=== PATIENT | female | born 1935 | race Caucasian/White ===

== ENCOUNTER → 2016-08-01 | Outpatient (REF) | LOC: ZLAB.WCH 09:17 | DX: Z01.89 Encounter for other specified special examinations (principal) ==

== ENCOUNTER → 2016-09-28 | Outpatient (REF) ==
[2016-09-28 19:08] LABS: THYROID STIMULATING HORMONE 2.02 uIU/mL (0.465-4.680)
== END ==
LOC: ZLAB.WCH 18:06
PROVIDERS: Family Medicine
DX: Z01.89 Encounter for other specified special examinations (principal)

== ENCOUNTER → 2017-04-29 | Outpatient (REF) ==
[2017-04-29 20:23] LABS: THYROID STIMULATING HORMONE 1.71 uIU/mL (0.465-4.680)
== END ==
LOC: ZLAB.WCH 18:45
PROVIDERS: Family Medicine
DX: Z01.89 Encounter for other specified special examinations (principal)